=== PATIENT | male | born 1985 | race Two or more races ===

== ENCOUNTER 2022-06-08 21:49 | Emergency (ER) | payer SELFPAY ==
[2022-06-08] MEDS: Bacitracin Oint 1 GM U/D Packet TOP ONE (23:28)
[2022-06-08 23:56] LABS: CARBON DIOXIDE,CO2 23.8 mmol/L (21.0-32.0); POTASSIUM,K 4.2 mmol/L (3.5-5.1)
== END 2022-06-09 00:39 | disposition home or self-care (01) ==
LOC: MW.ED 21:49
DX: R04.0 Epistaxis (principal); E11.9 Type 2 diabetes mellitus without complications; Z86.16 Personal history of COVID-19; Z79.4 Long term (current) use of insulin
CPT/HCPCS: 30901; 36415; 80053; 85025; 85610; 85730; 99282; 99283

== ENCOUNTER 2022-06-09 01:33 | Emergency (ER) | payer SELFPAY ==
[2022-06-09] MEDS ORDERED: Lidocaine 2% Viscous Solution 15 ML UD ONE (01:44)
== END 2022-06-09 03:01 | disposition home or self-care (01) ==
LOC: MW.ED 01:33
DX: R04.0 Epistaxis (principal); E11.9 Type 2 diabetes mellitus without complications; Z79.84 Long term (current) use of oral hypoglycemic drugs; Z86.16 Personal history of COVID-19
CPT/HCPCS: 30901; 99282; 99283

== ENCOUNTER 2022-06-10 19:09 | Emergency (ER) | payer SELFPAY | END 2022-06-10 21:21 | disposition home or self-care (01) | LOC: MW.ED 19:09 | DX: H57.11 Ocular pain, right eye (principal); J34.89 Other specified disorders of nose and nasal sinuses; E11.9 Type 2 diabetes mellitus without complications; Z79.84 Long term (current) use of oral hypoglycemic drugs; Z79.899 Other long term (current) drug therapy; Z90.49 Acquired absence of other specified parts of digestive tract; Z86.16 Personal history of COVID-19 | CPT/HCPCS: 99282; 99283 ==

== ENCOUNTER 2022-06-13 18:46 | Emergency (ER) | payer SELFPAY | END 2022-06-13 19:45 | disposition home or self-care (01) | LOC: MW.ED 18:46 | DX: Z48.00 Encounter for change or removal of nonsurgical wound dressing (principal); E11.9 Type 2 diabetes mellitus without complications; Z79.84 Long term (current) use of oral hypoglycemic drugs | CPT/HCPCS: 99282 ==

== ENCOUNTER 2023-02-09 11:11 | Emergency (ER) | payer SELFPAY | END 2023-02-09 12:16 | disposition home or self-care (01) | LOC: MW.ED 11:11 | DX: E11.65 Type 2 diabetes mellitus with hyperglycemia (principal); Z86.16 Personal history of COVID-19; Z79.84 Long term (current) use of oral hypoglycemic drugs | CPT/HCPCS: 82947; 99282 ==